=== PATIENT | male | born 1975 | race Caucasian/White ===

== ENCOUNTER → 2018-11-18 | Outpatient (REF) | payer OTHER ==
[~2018-11-18] MED LIST: ALLOPOW4 PO; INDO50CA PO; ULTR37.54 PO; VICOBULK PO
== END ==
LOC: M LAB REF 16:19
PROVIDERS: ATTEND Surgery
DX: S81.801D Unspecified open wound, right lower leg, subsequent encounter (principal); W18.30XA Fall on same level, unspecified, initial encounter; Y92.009 Unspecified place in unspecified non-institutional (private) residence as the place of occurrence of the external cause

== ENCOUNTER 2018-11-19 09:59 | Emergency (ER) | payer OTHER, BC ==
[~2018-11-19] VITALS: Ht 170.2 cm; Wt 100.0 kg
[~2018-11-19 09:59] MED LIST changes: -ULTR37.54 PO
[2018-11-19] MEDS ORDERED: NORCO, ANEXSIA 5/325MG TABLET (HYDROcodone/ACETAMINOPHEN) PO ONE (10:15)
[2018-11-19 10:48] LABS: BASO # 0.1 10^3/uL (0.0-0.2); BASO % 1.1 % (0.0-1.0); EOS # 0.8 10^3/uL (0.0-0.50); EOS % 9.7 % (0.0-3.0); HEMATOCRIT 42.8 % (42.0-52.0); HEMOGLOBIN 14.7 g/dl (13.5-17.5); LYMPH % 35.9 % (24.0-44.0); MEAN CORPUSCULAR HEMOGLOBIN 28.9 pg (27.0-33.0); MEAN CORPUSCULAR HGB CONC 34.3 g/dl (32.0-36.5); MEAN CORPUSCULAR VOLUME 84.1 fl (80.0-96.0); MONO # 0.7 10^3/uL (0.0-0.8); MONO % 8.7 % (0.0-5.0); NEUTROPHILS # 3.8 10^3/uL (1.8-7.7); NEUTROPHILS % 44.5 % (36.0-66.0); PLATELET COUNT, AUTOMATED 215 10^3/uL (150-450); RED BLOOD COUNT 5.09 10^6/uL (4.30-6.10); WHITE BLOOD COUNT 8.4 10^3/uL (4.0-10.0)
[2018-11-19 11:16] LABS: ALT/SGPT 88 U/L (12-78); BILIRUBIN,DIRECT 0.2 MG/DL (0.0-0.2); BLOOD UREA NITROGEN 27 MG/DL (7-18); CARBON DIOXIDE LEVEL 22 MEQ/L (21-32); CHLORIDE LEVEL 107 MEQ/L (98-107); CPK CREATINE PHOSPHOKINASE 212 U/L (39-308); CREATININE FOR GFR 0.95 MG/DL (0.70-1.30); GLOMERULAR FILTRATION RATE > 60.0 (>60); GLUCOSE, FASTING 119 MG/DL (70-100); POTASSIUM SERUM 4.5 MEQ/L (3.5-5.1); SODIUM LEVEL 137 MEQ/L (136-145); TOTAL PROTEIN 8.4 GM/DL (6.4-8.2)
[2018-11-19] MEDS ORDERED: PROHANCE 279.3MG/ML 15ML VIAL (A9576) As Ordered ONE (11:54)
[2018-11-19] MEDS ORDERED: PROHANCE 279.3MG/ML 5ML VIAL (A9576) As Ordered ONE (11:54)
--- NOTE | 2018-11-19 14:54 | REP ---
MRI RIGHT CALF WITHOUT AND WITH IV GADOLINIUM: HISTORY: Lower leg injury. Increased pain and swelling. Question abscess. 20 mL of intravenous ProHance is administered. Axial coronal and sagittal T1- and T2-weighted scans are included. MRI FINDINGS: Cortical and medullary bone signal intensity are normal in the tibia and fibula. Skeletal muscle signal intensity and contour are normal. There is subcutaneous edema of the posteromedial aspect of the left calf with an area of induration. There is a defect in the overlying skin consistent with incision and drainage site or laceration. There is no observable abscess cavity beneath this area or elsewhere. Exam is otherwise unremarkable. There is contrast enhancement in this indurated, edematous subcutaneous tissue. No other abnormal gadolinium enhancement is seen. IMPRESSION: Soft tissue induration and edema posteromedial calf about the site of disrupted skin. No identifiable abscess seen. No evidence of osteomyelitis. Skeletal muscle signal intensity is normal in the calf on T1- and T2-weighted scans. Electronically Signed by Matthias Jacinto MD 11/19/2018 03:18 P
[2018-11-19] MEDS ORDERED: MORPHINE 4 MG/ML 1ML VIAL/SYRINGE (J2270) IV ONE (15:30)
[2018-11-19] MEDS ORDERED: ULTR37.54 PO (15:30)
[2018-11-19 15:57] VITALS: BP 128/87
== END 2018-11-19 16:05 | disposition home or self-care (01) ==
LOC: M ED 09:59
DX: S81.801A Unspecified open wound, right lower leg, initial encounter (principal); X58.XXXA Exposure to other specified factors, initial encounter; Y92.89 Other specified places as the place of occurrence of the external cause; M10.9 Gout, unspecified
CPT/HCPCS: 73720; 80048; 80076; 82550; 85025; 96374; 99284; A9576; J2270

== ENCOUNTER → 2019-03-28 | Outpatient (REF) | payer OTHER, BC ==
[~2019-03-28] MED LIST changes: +ULTR37.54 PO
== END ==
LOC: M LAB REF 16:58
PROVIDERS: ATTEND Surgery
DX: S81.801D Unspecified open wound, right lower leg, subsequent encounter (principal)

== ENCOUNTER 2020-10-15 14:09 | Emergency (ER) | payer BC, OTHER ==
[~2020-10-15] VITALS: Ht 170.2 cm; Wt 103.0 kg
[2020-10-15 14:10] VITALS: BP 156/80
[2020-10-15] MEDS ORDERED: THIAMINE 100 MG TAB PO SCH (15:00)
[2020-10-15] MEDS ORDERED: LORazepam 2 MG TAB PO PRN (15:00)
[2020-10-15] MEDS ORDERED: BUPR150T3 (17:19)
[2020-10-16] MEDS ORDERED: FOLIC ACID 1 MG TAB PO SCH (09:00)
[2020-10-16] MEDS ORDERED: MULTIVITAMINS/MINERALS THERAP 1 TAB PO SCH (09:00)
== END 2020-10-15 16:00 | disposition home or self-care (01) ==
LOC: M ED 14:09
DX: F32.9 Major depressive disorder, single episode, unspecified (principal); F41.9 Anxiety disorder, unspecified; Z79.899 Other long term (current) drug therapy

== ENCOUNTER 2020-11-04 18:35 | Emergency (ER) | payer BC ==
[~2020-11-04] VITALS: Ht 170.2 cm; Wt 100.0 kg
[~2020-11-04 18:35] MED LIST changes: +BUPR150T3
[2020-11-04 21:27] VITALS: BP 139/84
== END 2020-11-04 21:28 | disposition home or self-care (01) ==
LOC: M ED 18:35
DX: F19.10 Other psychoactive substance abuse, uncomplicated (principal)